=== PATIENT | male | born 2000 | race Caucasian/White ===

== ENCOUNTER → 2025-05-13 | Outpatient (CLI) | payer OTHER | LOC: M WUC 10:15 | PROVIDERS: ATTEND Physician Assistant | DX: S93.692A Other sprain of left foot, initial encounter (principal); M25.572 Pain in left ankle and joints of left foot; X58.XXXA Exposure to other specified factors, initial encounter; Y92.9 Unspecified place or not applicable; Y93.9 Activity, unspecified; Y99.9 Unspecified external cause status ==